=== PATIENT | female | born 1995 | race African-American/Black ===

== ENCOUNTER 2018-07-08 17:43 | Emergency (ER) | payer SELFPAY ==
[~2018-07-08] VITALS: Ht 170.2 cm; Wt 58.0 kg
[2018-07-08 22:23] LABS: *AMPHETAMINES SCREEN URINE NEGATIVE (NEGATIVE); *BARBITURATES SCREEN URINE NEGATIVE (NEGATIVE); *BENZODIAZEPINES SCREEN URINE NEGATIVE (NEGATIVE); *COCAINE SCREEN URINE NEGATIVE (NEGATIVE); METHADONE URINE SCREEN NEGATIVE (NEGATIVE); OPIATES URINE SCREEN NEGATIVE (NEGATIVE); PHENCYCLIDINE URINE SCREEN NEGATIVE (NEGATIVE)
[2018-07-08 22:32] LABS: CANNABINOID URINE SCREEN PRESUMTIVE POSITIVE (NEGATIVE)
[2018-07-09] MEDS ORDERED: OLANZAPINE 10MG TABLET PO STA (09:59)
[2018-07-09] MEDS ORDERED: OLANZAPINE 10 MG/VIAL IM ONE (14:00)
[2018-07-09 15:31] VITALS: BP 122/86
[2018-07-09 15:46] LABS: BASOPHILS % 0.3 % (0.0-2.0); EOSINOPHILS % 0.7 % (0.0-5.0); HEMATOCRIT. 36.9 % (36.0-48.0); HEMOGLOBIN. 12.4 g/dL (12.0-16.0); LYMPHOCYTES % 17.7 % (20.0-50.0); MEAN CORPUSCULAR HEMOGLOBIN 28.6 pg (28.0-32.0); MEAN CORPUSCULAR VOLUME 85.2 fL (81.0-99.0); MEAN PLATELET VOLUME 8.4 fl (7.4-10.4); NEUTROPHILS % 75.3 % (40.0-76.0); PLATELET 228 x1000/uL (130-400); RED BLOOD CELL COUNT 4.34 mill/uL (4.2-5.4)
[2018-07-09 15:49] LABS: CHLORIDE 106 mEq/L (98-107)
[2018-07-09 15:53] LABS: ETHANOL BLOOD < 10 mg/dL
== END 2018-07-09 20:13 | disposition home or self-care (01) ==
LOC: ER 18:26
DX: R46.2 Strange and inexplicable behavior (principal); F29 Unspecified psychosis not due to a substance or known physiological condition; F31.9 Bipolar disorder, unspecified
CPT/HCPCS: 36415; 80053; 80305; 80307; 80329; 81025; 85025; 96372; 99284; G0482; J3490